=== PATIENT | female | born 2000 | race Caucasian/White ===

== ENCOUNTER → 2024-08-11 | Outpatient (CLI) | payer OTHER ==
[~2024-08-11] MED LIST: ADVAIR DISKUS1 DSK IH; PROAIR HFA0.09 MG/AC IH
[2024-08-11 12:10] LABS: BASO # 0.02 K/mm3 (0.02-0.10); EOS # 0.29 K/mm3 (0.04-0.40); EOS % 3.7 % (1.0-5.0); HEMATOCRIT 40.2 % (37.0-47.0); HEMOGLOBIN 13.3 g/dL (12.5-16.0); LYMPH# 2.01 K/mm3 (1.50-4.00); MEAN CELL VOLUME 89 fl (78-100); MEAN CORPUSCULAR HEMOGLOBIN 30 pg (27-31); MEAN CORPUSCULAR HGB CONC 33 g/dL (33-37); MONO # 0.53 K/mm3 (0.20-0.80); PLATELET COUNT 390 K/mm3 (130-400); RED CELL DISTRIBUTION WIDTH 12.9 % (11.5-14.5); WHITE BLOOD COUNT 7.9 K/mm3 (4.8-10.8)
[2024-08-11 12:18] LABS: ALBUMIN 4.2 g/dL (3.5-5.0)
[2024-08-11 12:19] LABS: CALCIUM 9.5 mg/dL (8.3-10.5)
[2024-08-11 12:20] LABS: TOTAL PROTEIN 7.4 g/dL (6.4-8.3)
[2024-08-11 12:22] LABS: TOTAL BILIRUBIN 0.4 mg/dL (0.2-1.2)
[2024-08-11 22:52] LABS: PROGESTERONE 0.3 ng/mL (())
[2024-08-12 23:07] LABS: FOLLICLE STIMULATING HORMONE 3.2 mIU/mL (()); LUTENIZING HORMONE 2.7 mIU/mL (())
[2024-08-13 09:20] LABS: ANA SCREEN with REFLEX Negative (Negative)
== END ==
LOC: LAB 11:54
PROVIDERS: Nurse Practitioner
DX: Z00.00 Encounter for general adult medical examination without abnormal findings (principal); Z13.220 Encounter for screening for lipoid disorders; E28.2 Polycystic ovarian syndrome; R20.8 Other disturbances of skin sensation

== ENCOUNTER → 2024-12-23 | Outpatient (CLI) | payer OTHER | LOC: LAB 08:39 | DX: N91.1 Secondary amenorrhea (principal) ==